=== PATIENT | male | born 1980 | race Two or more races ===

== ENCOUNTER 2018-03-09 19:39 | Emergency (ER) | payer SELFPAY ==
[~2018-03-09] VITALS: Ht 180.3 cm; Wt 97.5 kg
[2018-03-09 20:15] VITALS: BP 135/92
--- NOTE | 2018-03-09 21:01 | NUR ---
PT RETURNED FROM CT.
== END 2018-03-09 22:18 | disposition home or self-care (01) ==
LOC: ER 19:48
DX: M54.2 Cervicalgia (principal); M54.5 Low back pain; V49.49XA Driver injured in collision with other motor vehicles in traffic accident, initial encounter; Y93.89 Activity, other specified; Y92.413 State road as the place of occurrence of the external cause; Y99.8 Other external cause status
CPT/HCPCS: 72040-TC; 72100-TC; A4606; Z7610